=== PATIENT | male | born 1940 | race Caucasian/White ===

== ENCOUNTER 2018-01-23 07:26 | Outpatient (CLI) | payer MEDICARE, OTHER ==
[2018-01-23 08:15] LABS: BASOPHILS # (AUTO) 0.1 10^3/uL (0.0-0.1); BASOPHILS % (AUTO) 1.5 %; EOSINOPHILS # (AUTO) 0.1 10^3/uL (0.0-0.7); EOSINOPHILS % (AUTO) 1.8 %; HGB - HEMOGLOBIN 14.6 g/dL (14.0-18.0); LYMPHOCYTES # (AUTO) 1.4 10^3/uL (1.5-3.5); LYMPHOCYTES % (AUTO) 24.1 %; MEAN CORPUSCULAR HEMOGLOBIN 32.4 pg (27.0-31.0); MEAN CORPUSCULAR HGB CONC 33.5 g/dL (32.0-36.0); MEAN CORPUSCULAR VOLUME 96.6 fL (80.0-94.0); MEAN PLATELET VOLUME 9.2 fL (7.4-11.4); MONOCYTES # (AUTO) 0.6 10^3/uL (0.0-1.0); MONOCYTES % (AUTO) 9.8 %; NEUTROPHILS # (AUTO) 3.7 10^3/uL (1.5-6.6); NEUTROPHILS % (AUTO) 62.8 %; PLT - PLATELET COUNT 127 10^3/uL (130-450); RED BLOOD COUNT 4.51 10^6/uL (4.70-6.10); RED CELL DISTRIBUTION WIDTH 14.3 % (12.0-15.0)
[2018-01-23 08:26] LABS: ALBUMIN 4.3 g/dL (3.2-5.5); ALBUMIN/GLOBULIN RATIO 1.4 (1.0-2.2); ALKALINE PHOSPHATASE 46 IU/L (42-121); ALT ALANINE AMINOTRANSFERASE 24 IU/L (10-60); AST ASPARTATE AMINOTRANSFERASE 30 IU/L (10-42); BILIRUBIN,TOTAL 1.6 mg/dL (0.2-1.0); BUN - BLOOD UREA NITROGEN 27 mg/dL (6-20); CALCIUM 9.8 mg/dL (8.5-10.3); CARBON DIOXIDE - CO2 33 mmol/L (21-32); CHLORIDE 100 mmol/L (101-111); CHOL/HDL RATIO 2.7 (<5.0); CHOLESTEROL 133 mg/dL; DIGOXIN 1.2 ng/mL; GFR - MDRD 72 (>89); GLUCOSE 116 mg/dL (70-100); HB2 TOTAL 15.8 g/dL; HDL CHOLESTEROL 49 mg/dL; HEMOGLOBIN A1C 0.77 g/dL; HEMOGLOBIN A1C % 6.6 % (4.6-6.2); LDL CHOLESTEROL,CALCULATED 74 mg/dL; LDL/HDL RATIO 1.5 (<3.6); SODIUM 141 mmol/L (135-145); TOTAL PROTEIN 7.3 g/dL (6.7-8.2); VLDL CHOLESTEROL 10 mg/dL
[2018-01-23 08:36] LABS: RBC MORPHOLOGY (MULTIPLE) 2+ ANISOCYTOSIS (NORMAL)
== END 2018-01-23 07:27 | disposition home or self-care (01) ==
LOC: LAB 07:26
PROVIDERS: ATTEND Internal Medicine Cardiovascular Disease
DX: I10 Essential (primary) hypertension (principal); I25.10 Atherosclerotic heart disease of native coronary artery without angina pectoris; E11.9 Type 2 diabetes mellitus without complications; E78.5 Hyperlipidemia, unspecified; I48.91 Unspecified atrial fibrillation
CPT/HCPCS: 36415; 80053; 80061; 80162; 83036; 83721; 85025

== ENCOUNTER 2018-07-13 23:59 | Emergency (ER) | payer MEDICARE, OTHER ==
--- NOTE | 2018-07-14 01:18 | ED Physician Documentation ---
PD HPI BACK PAIN - Stated complaint Stated Complaint: BACK PAIN - Chief complaint Chief Complaint: Back Pain - History obtained from History obtained from: Patient - History of Present Illness Timing - onset: How many weeks ago (3) Timing - details: Gradual onset, Intermittant, Waxing and waning Pain level max: 8 Pain level now: 0 Location: Mid, Lower, Right, Left Quality: Pain, Spasm Associated symptoms: No: Fever, Weakness, Numbness, Incontinent of urine, Unable to urinate, Hematuria, Incontinent of stool Improves with: Rest Worsened by: Movement Similar symptoms before: Has not had sx before Recently seen: Not recently seen Review of Systems Constitutional: reports: Reviewed and negative Cardiac: reports: Reviewed and negative Respiratory: reports: Reviewed and negative GI: reports: Reviewed and negative : denies: Dysuria, Frequency, Unable to Void, Incontinent Skin: denies: Rash Musculoskeletal: reports: Back pain. denies: Neck pain Neurologic: denies: Focal weakness, Numbness PD PAST MEDICAL HISTORY - Past Medical History Past Medical History: Yes Cardiovascular: Coronary artery disease, Valve disorder Respiratory: None Neuro: Dementia Endocrine/Autoimmune: Type 2 diabetes GI: None : None HEENT: None Psych: None Musculoskeletal: Chronic back pain, Other Derm: None - Past Surgical History Past Surgical History: Yes Ortho: Other Cardiovascular: CABG, Other - Present Medications Home Medications: Ambulatory Orders Medication Instructions Recorded Confirmed Carvedilol 6.25 mg PO BID 07/14/18 07/14/18 Clopidogrel [Plavix] 75 mg PO DAILY 07/14/18 07/14/18 Cyclobenzaprine [Flexeril] 10 mg PO TID PRN #20 tablet 07/14/18 Hydrocodone/Acetaminophen 1 - 2 each PO Q6H PRN #14 tablet 07/14/18 [Hydrocodon-Acetaminophen 5-325] Lisinopril/Hydrochlorothiazide 1 mg PO DAILY 07/14/18 07/14/18 [Lisinopril-Hctz 20-25 mg Tab] Rosuvastatin Calcium 10 mg PO DAILY 07/14/18 07/14/18 - Allergies Allergies/Adverse Reactions: Allergies Allergy/AdvReac Type Severity Reaction Status Date / Time amoxicillin AdvReac Hives Verified 07/14/18 00:24 niacin AdvReac Hives Verified 07/14/18 00:24 - Social History Does the pt smoke?: No Smoking Status: Never smoker Does the pt drink ETOH?: Yes Does the pt have substance abuse?: No - Immunizations Immunizations are current?: Yes - POLST Patient has POLST: No PD ED PE NORMAL - Vitals Vital signs reviewed: Yes - General General: Alert and oriented X 3, No acute distress, Well developed/nourished - Cardiac Cardiac: RRR, No murmur - Respiratory Respiratory: No respiratory distress, Clear bilaterally - Abdomen Abdomen: Normal bowel sounds, Soft, Non tender, Non distended - Back Back: No CVA TTP, No spinal TTP - Derm Derm: Normal color, Warm and dry, No rash - Extremities Extremities: No edema - Neuro Neuro: Alert and oriented X 3, No motor deficit (5/5 bilateral plantarflexion and knee extension), No sensory deficit, Other (2+/4 bilateral patellar DTR) Results - Vitals Vitals: Vital Signs - 24 hr 07/14/18 07/14/18 07/14/18 00:12 01:44 02:57 Temperature 36.3 C L 36.3 C L Heart Rate 72 63 Respiratory 18 16 16 Rate Blood Pressure 145/86 H 137/82 H O2 Saturation 99 98 Oxygen O2 Source Room air - Labs Labs: Laboratory Tests 07/14/18 01:40 Urine Color YELLOW Urine Clarity CLEAR Urine pH 7.0 Ur Specific [place] 1.015 Urine Protein NEGATIVE Urine Glucose (UA) NEGATIVE Urine Ketones 15 H Urine Occult Blood NEGATIVE Urine Nitrite NEGATIVE Urine Bilirubin NEGATIVE Urine Urobilinogen 0.2 (NORMAL) Ur Leukocyte Esterase NEGATIVE Ur Microscopic Review NOT INDICATED Urine Culture Comments NOT INDICATED - Rads (name of study) lumbar xrays Radiology: Prelim report reviewed, See rad report PD MEDICAL DECISION MAKING - ED course Complexity details: reviewed results, re-evaluated patient, considered differential, d/w patient, d/w family Departure - Departure Disposition: 01 Home, Self Care Clinical Impression: Back pain Condition: Good Instructions: NARCOTIC, Oral, ED Neck Back Pain General Follow-Up: [facility] [Provider Group] [facility] [Provider Group] Prescriptions: Cyclobenzaprine [Flexeril] 10 mg PO TID PRN #20 tablet PRN Reason: Spasms Hydrocodone/Acetaminophen [Hydrocodon-Acetaminophen 5-325] 1 - 2 each PO Q6H PRN #14 tablet PRN Reason: pain Discharge Date/Time: 07/14/18 03:22
[2018-07-14] MEDS ORDERED: HYDROcod/ACETAM 5/325 MG TABLET PO STA (01:39)
[2018-07-14] MEDS ORDERED: CYCLOBENZAPRINE 10 MG TABLET PO STA (01:40)
[2018-07-14 01:59] LABS: BILIRUBIN,URINE NEGATIVE (NEGATIVE); GLUCOSE, URINE (UA) NEGATIVE (NEGATIVE); KETONES,URINE (UA) 15 mg/dL (NEGATIVE); LEUKOCYTE ESTERASE, URINE NEGATIVE (NEGATIVE); NITRITE,URINE NEGATIVE (NEGATIVE); OCCULT BLOOD,URINE NEGATIVE (NEGATIVE); PROTEIN,URINE NEGATIVE (NEGATIVE); UROBILINOGEN,URINE 0.2 (NORMAL) E.U./dL (NORMAL)
[2018-07-14 02:09] LABS: CLARITY,URINE CLEAR (CLEAR)
--- NOTE | 2018-07-14 02:37 | XRAY Report ---
Reason: low back pain Procedure Date: 07/14/2018 Accession Number: [id number] / [id number] Procedure: XR - Lumbar Spine Complete CPT Code: FULL RESULT: EXAM: LUMBOSACRAL SPINE RADIOGRAPHY EXAM DATE: 07/14/2018 02:19 AM. CLINICAL HISTORY: Low back pain. COMPARISONS: None. TECHNIQUE: 3 views. FINDINGS: Alignment: Degenerative dextroscoliosis. Bones: Five [id number] lumbar vertebral bodies are present. No fractures or bone lesions. Disks: Moderate to severe degenerative disk disease. Facets: Moderate facet arthropathy. Sacroiliac Joints: Unremarkable. Soft Tissues: Atherosclerotic calcifications. No evidence of bowel obstruction. IMPRESSION: Moderate to severe degenerative changes, with degenerative dextroscoliosis of the lumbar spine. No evidence of acute fracture. RADIA
[2018-07-14 02:58] VITALS: BP 137/82
== END 2018-07-14 03:22 | disposition home or self-care (01) ==
LOC: ED 23:59
DX: M54.5 Low back pain (principal); I25.10 Atherosclerotic heart disease of native coronary artery without angina pectoris; E11.9 Type 2 diabetes mellitus without complications; F03.90 Unspecified dementia, unspecified severity, without behavioral disturbance, psychotic disturbance, mood disturbance, and anxiety; Z95.1 Presence of aortocoronary bypass graft; Z79.01 Long term (current) use of anticoagulants
CPT/HCPCS: 72110; 81003; 99283; A9270; 81001; 87086

== ENCOUNTER 2021-11-22 09:12 | Emergency (ER) | payer MEDICARE ==
--- NOTE | 2021-11-22 09:55 | XRAY Report ---
PROCEDURE: Chest 1 View X-Ray INDICATIONS: chest pain COMMENTS: CHEST PAIN/ PT STATES CHRONIC COUGH PRIORS: NONE TECHNIQUE: One view of the chest was acquired. COMPARISON: None FINDINGS: Surgical changes and devices: Status post median sternotomy Lungs and pleura: No pleural effusions or pneumothorax. Lungs are clear. Mediastinum: Mediastinal contours appear normal. Heart appears enlarged. Bones and chest wall: No suspicious bony lesions. Overlying soft tissues appear unremarkable. IMPRESSION: 1. No acute abnormality of the chest. 2. Cardiomegaly. Reviewed by: Steven Escobedo on 11/22/2021 9:54 AM PDT Approved by: Steven Escobedo on 11/22/2021 9:54 AM PDT Station ID: [id number]
--- NOTE | 2021-11-22 10:22 | ED Physician Documentation ---
History of Present Illness - Stated complaint Stated Complaint: COUGH/WEAKNESS - Chief complaint Chief Complaint: General - History obtained from History obtained from: Patient, Family - Additonal information Additional information: Pt is brought to the ED for CC of cough and congestion. states she had a cold last week, and pt seems to have developed the same sx. No fever. No swelling or dyspnea. Normal appetite. Pt has a h/o dementia. states she was not too concerned, but pt wished to come to the doctor, so she has brought him. No other complaints at this time. Review of Systems Ten Systems: 10 systems reviewed and negative Constitutional: reports: Reviewed and negative Eyes: reports: Reviewed and negative Ears: reports: Reviewed and negative Nose: reports: Rhinorrhea / runny nose, Congestion Throat: reports: Reviewed and negative Cardiac: reports: Reviewed and negative Respiratory: reports: Cough GI: reports: Reviewed and negative : reports: Reviewed and negative Skin: reports: Reviewed and negative Musculoskeletal: reports: Reviewed and negative Neurologic: reports: Reviewed and negative Psychiatric: reports: Reviewed and negative Endocrine: reports: Reviewed and negative Immunocompromised: reports: Reviewed and negative PD PAST MEDICAL HISTORY - Past Medical History Past Medical History: Yes Cardiovascular: Coronary artery disease, Atrial fibrillation, Valve disorder Respiratory: None Neuro: Dementia, CVA Endocrine/Autoimmune: Type 2 diabetes GI: None : Incontinence, Frequency HEENT: None Psych: None Musculoskeletal: Osteoarthritis, Chronic back pain, Other Derm: None - Past Surgical History Past Surgical History: Yes General: Colonoscopy Ortho: Other Cardiovascular: CABG, Valve replacement, Other - Present Medications Home Medications: Ambulatory Orders Medication Instructions Recorded Confirmed Lisinopril/Hydrochlorothiazide 1 mg PO DAILY 07/14/18 11/22/21 [Lisinopril-Hctz 20-25 mg Tab] Rosuvastatin Calcium 10 mg PO DAILY 07/14/18 11/22/21 carvediloL [Coreg] 3.125 mg PO BID 11/22/21 11/22/21 - Allergies Allergies/Adverse Reactions: Allergies Allergy/AdvReac Type Severity Reaction Status Date / Time amoxicillin AdvReac Hives Verified 11/22/21 09:20 niacin AdvReac Hives Verified 11/22/21 09:20 - Social History Does the pt smoke?: No Smoking Status: Never smoker Does the pt drink ETOH?: No Does the pt have substance abuse?: No - Immunizations Immunizations are current?: Yes - POLST Patient has POLST: No PD ED PE NORMAL - Vitals Vital signs reviewed: Yes - General General: No acute distress, Well developed/nourished, Other (Alert, conversant, NAD) - HEENT HEENT: Atraumatic, PERRL, EOMI, Moist mucous membranes - Neck Neck: Supple, no meningeal sign - Cardiac Cardiac: RRR, No murmur, Strong equal pulses - Respiratory Respiratory: No respiratory distress, Clear bilaterally - Abdomen Abdomen: Normal bowel sounds, Soft, Non tender, Non distended - Derm Derm: Normal color, Warm and dry, No rash - Extremities Extremities: No deformity, No edema - Neuro Neuro: Other (Grossly intact) - Psych Psych: Normal mood, Normal affect Results - Vitals Vitals: Oxygen O2 Source Room air - Labs Labs: Laboratory Tests 11/22/21 09:45 Nasal Adenovirus (PCR) NOT DETECTED Nasal B. parapertussis DNA (PCR) NOT DETECTED Nasal Coronavir 229E PCR NOT DETECTED Nasal Coronavir HKU1 PCR NOT DETECTED Nasal Coronavir NL63 PCR NOT DETECTED Nasal Coronavir OC43 PCR NOT DETECTED Nasal Enterovir/Rhinovir PCR NOT DETECTED Nasal Influenza B PCR NOT DETECTED Nasal Influenza A PCR NOT DETECTED Nasal Parainfluen 1 PCR NOT DETECTED Nasal Parainfluen 2 PCR NOT DETECTED Nasal Parainfluen 3 PCR NOT DETECTED Nasal Parainfluen 4 PCR NOT DETECTED Nasal RSV (PCR) NOT DETECTED Nasal B.pertussis DNA PCR NOT DETECTED Nasal C.pneumoniae (PCR) NOT DETECTED Dank Human Metapneumo PCR NOT DETECTED Nasal M.pneumoniae (PCR) NOT DETECTED Nasal SARS-CoV-2 (PCR) NOT DETECTED - Rads (name of study) CXR Radiology: Final report received, EMP read indepedently, See rad report (nad) PD MEDICAL DECISION MAKING - ED course Complexity details: reviewed results, re-evaluated patient, considered differential, d/w patient, d/w family ED course: Pt was worked up with CXR and respiratory panel. CXR was negative. Respiratory PCR panel is pending. We have discussed that we will contact pt/family with any positive findings. Pt is very well-appearing, and is ready for d/c home. Departure - Departure Disposition: Home, Self Care Clinical Impression: Viral upper respiratory infection Condition: Stable Instructions: ED Viral Syndrome Comments: A respiratory panel has been obtained and is pending at this time. He we will call you with any positive results. The chest x-ray looks good and shows no evidence of pneumonia or any other lung condition. Most likely, your symptoms are caused by one of the many viruses that can affect the upper respiratory system,. These are in general self-limited and symptoms will be expected to go away on their own in the next several days to week. Discharge Date/Time: 11/22/21 10:26
[2021-11-22 10:23] VITALS: BP 155/79
[2021-11-22 10:48] LABS: B. PARAPERTUSSIS- RESP PCR PAN NOT DETECTED; B. PERTUSSIS- RESP PCR PANEL NOT DETECTED; C. PNEUMONIAE- RESP PCR PANEL NOT DETECTED; CORONAVIRUS 229E-RESP PCR NOT DETECTED; CORONAVIRUS HKU1-RESP PCR NOT DETECTED; CORONAVIRUS NL63-RESP PCR NOT DETECTED; CORONAVIRUS OC43-RESP PCR NOT DETECTED; HUMAN METAPNEUMOVIRUS NOT DETECTED; INFLUENZA A- RESP PCR PANEL NOT DETECTED; INFLUENZA B - RESP PCR PANEL NOT DETECTED; M. PNEUMONIAE- RESP PCR PANEL NOT DETECTED; PARAINFLUENZA VIRUS 1 NOT DETECTED; PARAINFLUENZA VIRUS 2 NOT DETECTED; PARAINFLUENZA VIRUS 3 NOT DETECTED; PARAINFLUENZA VIRUS 4 NOT DETECTED; RHINOVIRUS/ENTEROVIRUS NOT DETECTED; RSV- RESP PCR PANEL NOT DETECTED; SARS-CoV-2 -RESP PCR PANEL NOT DETECTED
== END 2021-11-22 10:26 | disposition home or self-care (01) ==
LOC: ED 09:12
DX: J06.9 Acute upper respiratory infection, unspecified (principal); F03.90 Unspecified dementia, unspecified severity, without behavioral disturbance, psychotic disturbance, mood disturbance, and anxiety; E11.9 Type 2 diabetes mellitus without complications
CPT/HCPCS: 87633; 99282; 99284

== ENCOUNTER 2022-02-26 08:00 | Outpatient (CLI) | payer MEDICARE | END 2022-02-26 23:59 | disposition home or self-care (01) | LOC: LAB 08:00 | PROVIDERS: ATTEND Physician Assistant Medical | DX: L08.9 Local infection of the skin and subcutaneous tissue, unspecified (principal); R21 Rash and other nonspecific skin eruption | CPT/HCPCS: 81599; 87070; 87077; 87205; 87529; 87798 ==

== ENCOUNTER 2022-03-06 07:34 | Emergency (ER) | payer MEDICARE ==
--- NOTE | 2022-03-06 07:49 | ED Physician Documentation ---
PD HPI ABD PAIN - Stated complaint Stated Complaint: CONSTIPATION - History obtained from History obtained from: Patient - History of Present Illness Timing - onset: How many days ago (10) Timing - duration: Days (He started about 10 days ago with some difficulty urinating and also noted a rash around the perirectal and left gluteal area. Seen at walk-in 8 days ago and diagnosed with some urinary retention and madeline arent skin rash with secondary infection. Treated with Jocelyne acyclovir as well as doxycycline.) Timing - details: Still present (His states the rash has improved quite a b it with still some mild redness. Still difficulty urinating with only dribbles and a feeling of a full bladder. Now 3 days of rectal pressure and urge of bowel movement without any stool.) Quality: Cramping, Aching (lower abd, susan suprapubic area, with fullness/ distension ( says he looks like he is ).), Fullness/distended (suprapubic) Location: Suprapubic Radiation: No: Chest, Lower back Associated symptoms: Constipation, Dysuria (hesitancy and dribbling only for the past week, despite tamsulosin.). No: Fever, Nausea, Vomiting Recently seen: Clinic (8 days ago and Rx Tamsulosin (for retention), Doxycycline and valacyclovir (for skin rash).) Review of Systems Unable to obtain: Dementia, Other (info from as well) Constitutional: denies: Fever, Chills Nose: denies: Rhinorrhea / runny nose, Congestion Throat: denies: Sore throat Respiratory: denies: Cough GI: reports: Abdominal Pain, Constipation. denies: Nausea, Vomiting, Diarrhea : reports: Frequency, Hesitancy Skin: reports: Rash (left gluteal and perirectal.) PD PAST MEDICAL HISTORY - Past Medical History Cardiovascular: Coronary artery disease, Atrial fibrillation, Valve disorder Respiratory: None Neuro: Dementia, CVA Endocrine/Autoimmune: Type 2 diabetes GI: None : Incontinence, Frequency HEENT: None Psych: None Musculoskeletal: Osteoarthritis, Chronic back pain, Other Derm: None - Past Surgical History Past Surgical History: Yes General: Colonoscopy Ortho: Other Cardiovascular: CABG, Valve replacement, Other - Present Medications Home Medications: Ambulatory Orders Medication Instructions Recorded Confirmed Lisinopril/Hydrochlorothiazide 1 mg PO DAILY 07/14/18 03/06/22 [Lisinopril-Hctz 20-25 mg Tab] Rosuvastatin Calcium 10 mg PO HS 07/14/18 03/06/22 carvediloL [Coreg] 3.125 mg PO BID 11/22/21 03/06/22 Clotrimazole/Betamethasone Crm 1 applic TOP BID 6 Days #30 ml 03/06/22 [Lotrisone Cream] Docusate Sodium 100Mg Capsule 100 mg PO DAILY #20 cap 03/06/22 [Colace 100Mg Capsule] Doxycycline Hyclate 100 mg PO BID 03/06/22 03/06/22 Tamsulosin [Flomax] 0.4 mg PO DAILY 03/06/22 03/06/22 Valacyclovir HCl [Valtrex] 1,000 mg PO TID 03/06/22 03/06/22 - Allergies Allergies/Adverse Reactions: Allergies Allergy/AdvReac Type Severity Reaction Status Date / Time clindamycin Allergy Unknown Verified 03/06/22 07:50 amoxicillin AdvReac Hives Verified 11/22/21 09:20 niacin AdvReac Hives Verified 11/22/21 09:20 - Social History Does the pt smoke?: No Smoking Status: Never smoker Does the pt drink ETOH?: No Does the pt have substance abuse?: No - Immunizations Immunizations are current?: Yes - POLST Patient has POLST: No PD ED PE NORMAL - Vitals Vital signs reviewed: Yes - General General: Alert and oriented X 3, No acute distress, Well developed/nourished - Abdomen Abdomen: Normal bowel sounds, Soft, Other (Notable fullness and mild to moderate tenderness in the suprapubic area and a rounded shape consistent with an enlarged bladder. 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 Testicles and scrotum without any fullness or tenderness. No hernias noted.) - Rectal Rectal: Other (digital exam shows tennisball sized impaction of medium hard stool that I broke up digitally. No tenderness. Normal rectal tone. ) - Back Back: No CVA TTP - Derm Derm: Normal color, Warm and dry, Other (The perirectal area shows demarcated redness with some speckled redness at the edges. It is perirectal up through the coccygeal area and left gluteal. Likely tinea cruris with secondary infection that has cleared. Previous shingles consideration is not unreasonabl e.) - Neuro Neuro: Alert and oriented X 3, No motor deficit, Normal speech Results - Vitals Vitals: Vital Signs - 24 hr 03/06/22 03/06/22 03/06/22 07:47 08:58 11:10 Temperature 36.4 C L Heart Rate 86 82 94 Respiratory 14 16 18 Rate Blood Pressure 182/82 H 169/77 H O2 Saturation 99 99 100 Oxygen O2 Source Room air PD MEDICAL DECISION MAKING - ED course Complexity details: reviewed old records, re-evaluated patient (1200 ml out from bladder with albright. Abd much decompressed. He did have BM after 2 enemas and feels better in that regard too. ), considered differential (He has developed some constipation with mild impaction. Digital exam and then enema should help with this as well as some stool softeners. However her main issue is acute urinary retention with enlarged bladder and I think that is most of his cramps and pain. Tinea cruris in the perirectal area.), d/w patient Departure - Departure Disposition: Home, Self Care Clinical Impression: Urinary retention, Rash Constipation Qualifiers: Constipation type: unspecified constipation type Qualified Code(s): K59.00 - Constipation, unspecified Condition: Stable Record reviewed to determine appropriate education?: Yes Instructions: ED Catheter Care Albright Prescriptions: Docusate Sodium 100Mg Capsule [Colace 100Mg Capsule] 100 mg PO DAILY #20 cap Clotrimazole/Betamethasone Crm [Lotrisone Cream] 1 applic TOP BID 6 Days #30 ml Comments: You did have a large amount of urine held in the bladder. We will need to continue the Albright catheter for likely a week or more to allow the bladder distention to decrease. The muscles being stretched for that long will have decreased the tone and function of the bladder muscles. These need to constrict back down and get into better tone. Meanwhile would also have you continue with the tamsulosin to help with prostate. Follow-up with your primary care. They may or may not want to refer you to a urologist as well. The enema we gave for the constipation should help start to move things along. However would continue with stool softeners orally. Docusate twice daily for the next several days and then once daily after that. The rash around your buttock and perirectal area does look like it had some bacterial component to it. The antibiotics look like they have helped. However there still appears to be likely an underlying yeast component. You can use the Lotrisone antifungal and anti-inflammatory cream twice daily to the rash area to better resolve that. I transmitted your prescriptions to your preferred pharmacy. Discharge Date/Time: 03/06/22 12:42
[2022-03-06] MEDS ORDERED: LIDOCAINE 2% URO-JET 5 ML SYRINGE UR STA (08:16)
[2022-03-06] MEDS ORDERED: MINERAL OIL ENEMA 133 ML BOTTLE RC STA (08:16)
[2022-03-06] MEDS ORDERED: DOCUSATE SODIUM 100 MG CAPSULE PO STA (08:17)
[2022-03-06 08:59] VITALS: BP 169/77
[2022-03-06] MEDS ORDERED: SALINE ENEMA 133 ML BOTTLE RC STA (10:59)
[2022-03-06] MEDS ORDERED: LACTULOSE 10 GM /15 ML UDC PO STA (10:59)
== END 2022-03-06 12:42 | disposition home or self-care (01) ==
LOC: ED 07:34
DX: R33.9 Retention of urine, unspecified (principal); B35.6 Tinea cruris; K59.00 Constipation, unspecified
CPT/HCPCS: 51702; 99283; A9270

== ENCOUNTER 2022-03-15 10:18 | Emergency (ER) | payer MEDICARE ==
--- NOTE | 2022-03-15 10:58 | ED Physician Documentation ---
History of Present Illness - Stated complaint Stated Complaint: MALE - Chief complaint Chief Complaint: General - History obtained from History obtained from: Patient, Family - Additonal information Additional information: 81-year-old gentleman with dementia presents by who gives most of the history because of his dementia. He was seen here 9 days ago for constipation and urinary retention, العلي was placed and he was disimpacted. They have access issues with regard to primary care and urology and the العلي is hurting. A lot of pain last night at the tip of the penis. Review of Systems Constitutional: reports: Reviewed and negative Ears: reports: Reviewed and negative GI: denies: Abdominal Pain, Nausea, Vomiting : denies: Dysuria, Frequency, Hesitancy PD PAST MEDICAL HISTORY - Past Medical History Cardiovascular: Coronary artery disease, Atrial fibrillation, Valve disorder Respiratory: None Neuro: Dementia, CVA Endocrine/Autoimmune: Type 2 diabetes GI: None : Incontinence, Frequency HEENT: None Psych: None Musculoskeletal: Osteoarthritis, Chronic back pain, Other Derm: None - Past Surgical History Past Surgical History: Yes General: Colonoscopy Ortho: Other Cardiovascular: CABG, Valve replacement, Other - Present Medications Home Medications: Ambulatory Orders Medication Instructions Recorded Confirmed Lisinopril/Hydrochlorothiazide 1 mg PO DAILY 07/14/18 03/06/22 [Lisinopril-Hctz 20-25 mg Tab] Rosuvastatin Calcium 10 mg PO HS 07/14/18 03/06/22 carvediloL [Coreg] 3.125 mg PO BID 11/22/21 03/06/22 Clotrimazole/Betamethasone Crm 1 applic TOP BID 6 Days #30 ml 03/06/22 [Lotrisone Cream] Docusate Sodium 100Mg Capsule 100 mg PO DAILY #20 cap 03/06/22 [Colace 100Mg Capsule] Doxycycline Hyclate 100 mg PO BID 03/06/22 03/06/22 Tamsulosin [Flomax] 0.4 mg PO DAILY 03/06/22 03/06/22 Valacyclovir HCl [Valtrex] 1,000 mg PO TID 03/06/22 03/06/22 Lidocaine Viscous 2% [Xylocaine 5 ml UR Q4H #100 ml 03/15/22 Viscous 2%] - Allergies Allergies/Adverse Reactions: Allergies Allergy/AdvReac Type Severity Reaction Status Date / Time clindamycin Allergy Unknown Verified 03/06/22 07:50 amoxicillin AdvReac Hives Verified 11/22/21 09:20 niacin AdvReac Hives Verified 11/22/21 09:20 - Social History Does the pt smoke?: No Smoking Status: Never smoker Does the pt drink ETOH?: No Does the pt have substance abuse?: No - Immunizations Immunizations are current?: Yes - POLST Patient has POLST: No PD ED PE NORMAL - Vitals Vital signs reviewed: Yes - General General: No acute distress - Abdomen Abdomen: Normal bowel sounds, Soft, Non tender - Male Male : Other (العلي in place with bloody but not opaque or clotted urine.) - Derm Derm: Normal color, Warm and dry Results - Vitals Vitals: Vital Signs - 24 hr 03/15/22 10:29 Temperature 37.0 C Heart Rate 72 Respiratory 19 Rate Blood Pressure 150/83 H O2 Saturation 99 Oxygen O2 Source Room air PD MEDICAL DECISION MAKING - ED course ED course: 81-year-old gentleman presents with catheter pain, his العلي was removed on initial evaluation we will do a voiding trial. 81-year-old gentleman with العلي related pain. His العلي was removed, but he failed the voiding trial so it was replaced. Departure - Departure Disposition: 01 Home, Self Care Clinical Impression: Urinary retention Condition: Good Record reviewed to determine appropriate education?: Yes Instructions: ED Catheter Care العلي Prescriptions: Lidocaine Viscous 2% [Xylocaine Viscous 2%] 5 ml UR Q4H #100 ml Comments: Continue efforts at outpatient followup for both primary care and urology.
[2022-03-15] MEDS ORDERED: LIDOCAINE 2% URO-JET 5 ML SYRINGE UR STA (14:21)
[2022-03-15 14:47] VITALS: BP 170/65
== END 2022-03-15 15:01 | disposition home or self-care (01) ==
LOC: ED 10:18
DX: R33.9 Retention of urine, unspecified (principal)
CPT/HCPCS: 51702; 99282; 99283

== ENCOUNTER 2022-05-08 11:31 | Emergency (ER) | payer MEDICARE ==
--- NOTE | 2022-05-08 14:14 | ED Physician Documentation ---
PD HPI MALE - Stated complaint Stated Complaint: CATH BLOCKED - Chief complaint Chief Complaint: Abd Pain - History obtained from History obtained from: Patient, Family - Additional information Additional information: Patient is an 81-year-old male with a العلي catheter that has not been draining since this morning. Per his he had had a stumble and fall yesterday and since this morning he has had no drainage in his catheter. He was so uncomfortable prior to triage that deflated the balloon and remove the catheter as she was shown how to do so by his urologist in [place]. His next appointment with his urologist is in a week and he was to have his catheter removed. Patient does feel like he is able to void.He does report having suprapubic discomfort. He denies fever, chest pain, difficulty breathing. He has not had cloudiness to the urine recently. Review of Systems Constitutional: denies: Fever Nose: denies: Congestion Throat: denies: Sore throat Cardiac: denies: Chest pain / pressure Respiratory: denies: Dyspnea GI: reports: Abdominal Pain (Suprapubic) : reports: Unable to Void Musculoskeletal: denies: Back pain PD PAST MEDICAL HISTORY - Past Medical History Cardiovascular: Coronary artery disease, Atrial fibrillation, Valve disorder Respiratory: None Neuro: Dementia, CVA Endocrine/Autoimmune: Type 2 diabetes GI: None : Incontinence, Frequency HEENT: None Psych: None Musculoskeletal: Osteoarthritis, Chronic back pain, Other Derm: None - Past Surgical History Past Surgical History: Yes General: Colonoscopy Ortho: Other Cardiovascular: CABG, Valve replacement, Other - Present Medications Home Medications: Ambulatory Orders Medication Instructions Recorded Confirmed Lisinopril/Hydrochlorothiazide 1 mg PO DAILY 07/14/18 03/06/22 [Lisinopril-Hctz 20-25 mg Tab] Rosuvastatin Calcium 10 mg PO HS 07/14/18 03/06/22 carvediloL [Coreg] 3.125 mg PO BID 11/22/21 03/06/22 Clotrimazole/Betamethasone Crm 1 applic TOP BID 6 Days #30 ml 03/06/22 [Lotrisone Cream] Docusate Sodium 100Mg Capsule 100 mg PO DAILY #20 cap 03/06/22 [Colace 100Mg Capsule] Doxycycline Hyclate 100 mg PO BID 03/06/22 03/06/22 Tamsulosin [Flomax] 0.4 mg PO DAILY 03/06/22 03/06/22 Valacyclovir HCl [Valtrex] 1,000 mg PO TID 03/06/22 03/06/22 Lidocaine Viscous 2% [Xylocaine 5 ml UR Q4H #100 ml 03/15/22 Viscous 2%] - Allergies Allergies/Adverse Reactions: Allergies Allergy/AdvReac Type Severity Reaction Status Date / Time clindamycin Allergy Unknown Verified 03/06/22 07:50 amoxicillin AdvReac Hives Verified 11/22/21 09:20 niacin AdvReac Hives Verified 11/22/21 09:20 - Social History Does the pt smoke?: No Smoking Status: Never smoker Does the pt drink ETOH?: No Does the pt have substance abuse?: No - Immunizations Immunizations are current?: Yes - POLST Patient has POLST: No PD ED PE NORMAL - General General: Alert and oriented X 3, No acute distress, Well developed/nourished - HEENT HEENT: Atraumatic - Neck Neck: Supple, no meningeal sign - Cardiac Cardiac: RRR, Strong equal pulses - Respiratory Respiratory: No respiratory distress, Clear bilaterally - Abdomen Abdomen: Soft. No: Non tender (Mild suprapubic tenderness to palpation) - Derm Derm: Warm and dry Results - Vitals Vitals: Vital Signs - 24 hr 05/08/22 05/08/22 05/08/22 12:04 13:55 14:16 Temperature 37.1 C Heart Rate 90 75 69 Respiratory 19 18 17 Rate Blood Pressure 144/90 H 125/68 133/68 H O2 Saturation 99 99 98 Oxygen O2 Source Room air PD MEDICAL DECISION MAKING - ED course ED course: Patient with العلي catheter problem that was removed by his . He has suprapubic tenderness. He was not able to void much on his own and has considerable amount still in his bladder on bladder scan.New catheter was placed with clear yellow Urine. He is feeling much better. He has no indications to suggest a urinary tract infection. Patient counseled on need for close follow- up with his urologist as well as concerning symptoms to return for. Departure - Departure Disposition: 01 Home, Self Care Clinical Impression: Urinary retention Condition: Stable Instructions: ED Retention Urinary Male Comments: Your العلي catheter was reinserted as again you were having difficulty with urination. Please keep this in until you are seen by your urologist. If the catheter is not draining please return back to the emergency department. Discharge Date/Time: 05/08/22 14:36
[2022-05-08 14:22] VITALS: BP 133/68
== END 2022-05-08 14:36 | disposition home or self-care (01) ==
LOC: ED 11:31
DX: R33.9 Retention of urine, unspecified (principal)
CPT/HCPCS: 51702; 51798; 99282; 99283

== ENCOUNTER 2022-05-29 10:58 | Emergency (ER) | payer MEDICARE ==
[2022-05-29 11:49] VITALS: BP 161/92
--- NOTE | 2022-05-29 12:04 | ED Physician Documentation ---
PD HPI MALE - Stated complaint Stated Complaint: CATH ISSUE - Chief complaint Chief Complaint: Abd Pain - History obtained from History obtained from: Patient, Family - Additional information Additional information: 81-year-old gentleman with dementia presents accompanied by his . He has been catheter dependent for the last couple of months and has an appointment with urology in the next few days for evaluation. His catheter suddenly stopped draining this morning at 8 AM and he has severe suprapubic pain. Review of Systems Unable to obtain: Dementia PD PAST MEDICAL HISTORY - Past Medical History Cardiovascular: Coronary artery disease, Atrial fibrillation, Valve disorder Respiratory: None Neuro: Dementia, CVA Endocrine/Autoimmune: Type 2 diabetes GI: None : Incontinence, Frequency HEENT: None Psych: None Musculoskeletal: Osteoarthritis, Chronic back pain, Other Derm: None - Past Surgical History Past Surgical History: Yes General: Colonoscopy Ortho: Other Cardiovascular: CABG, Valve replacement, Other - Present Medications Home Medications: Ambulatory Orders Medication Instructions Recorded Confirmed Lisinopril/Hydrochlorothiazide 1 mg PO DAILY 07/14/18 03/06/22 [Lisinopril-Hctz 20-25 mg Tab] Rosuvastatin Calcium 10 mg PO HS 07/14/18 03/06/22 carvediloL [Coreg] 3.125 mg PO BID 11/22/21 03/06/22 Clotrimazole/Betamethasone Crm 1 applic TOP BID 6 Days #30 ml 03/06/22 [Lotrisone Cream] Docusate Sodium 100Mg Capsule 100 mg PO DAILY #20 cap 03/06/22 [Colace 100Mg Capsule] Doxycycline Hyclate 100 mg PO BID 03/06/22 03/06/22 Tamsulosin [Flomax] 0.4 mg PO DAILY 03/06/22 03/06/22 Valacyclovir HCl [Valtrex] 1,000 mg PO TID 03/06/22 03/06/22 Lidocaine Viscous 2% [Xylocaine 5 ml UR Q4H #100 ml 03/15/22 Viscous 2%] - Allergies Allergies/Adverse Reactions: Allergies Allergy/AdvReac Type Severity Reaction Status Date / Time clindamycin Allergy Unknown Verified 05/29/22 11:49 amoxicillin AdvReac Hives Verified 05/29/22 11:49 niacin AdvReac Hives Verified 05/29/22 11:49 - Social History Does the pt smoke?: No Smoking Status: Never smoker Does the pt drink ETOH?: No Does the pt have substance abuse?: No - Immunizations Immunizations are current?: Yes - POLST Patient has POLST: No PD ED PE NORMAL - Vitals Vital signs reviewed: Yes - General General: Other (He is alert and oriented to person and place) - Abdomen Abdomen: Normal bowel sounds, Other (Suprapubic tenderness and fullness with a dilated urinary bladder on ultrasound.) - Psych Psych: Normal mood, Normal affect Results - Vitals Vitals: Vital Signs - 24 hr 05/29/22 11:45 Temperature 36.4 C L Heart Rate 92 Respiratory 18 Rate Blood Pressure 161/92 H O2 Saturation 97 Oxygen O2 Source Room air Procedures - General procedure General procedure: العلي catheter was replaced at the bedside by me, after a full iodine prep 16 Japanese العلي was placed without issue. He drained a large amount of urine and felt better. Departure - Departure Disposition: Home, Self Care Clinical Impression: العلي catheter problem Condition: Good Record reviewed to determine appropriate education?: Yes Instructions: ED Catheter Care العلي Comments: Follow-up with urology on Monday as scheduled. Return for new or worsening symptoms.
== END 2022-05-29 12:25 | disposition home or self-care (01) ==
LOC: ED 10:58
DX: T83.091A Other mechanical complication of indwelling urethral catheter, initial encounter (principal)
CPT/HCPCS: 51702; 99281

== ENCOUNTER 2022-06-01 16:11 | Emergency (ER) | payer MEDICARE ==
[2022-06-01 16:25] VITALS: BP 195/101
--- NOTE | 2022-06-01 16:58 | ED Physician Documentation ---
History of Present Illness - Stated complaint Stated Complaint: MALE - Chief complaint Chief Complaint: General - History obtained from History obtained from: Patient, Family - History of Present Illness Timing: Today Pain level max: 5 Pain level now: 4 - Additonal information Additional information: 81-year-old male presents to the emergency department complaining of acute urinary retention. This is been an ongoing issue for the past several months. He had his العلي catheter removed yesterday at the urologist office. Has been unable to urinate today. Requesting a new catheter be placed. Nothing makes it better or worse. Review of Systems Constitutional: denies: Fever, Chills Respiratory: denies: Cough GI: denies: Nausea, Vomiting, Diarrhea PD PAST MEDICAL HISTORY - Past Medical History Cardiovascular: Coronary artery disease, Atrial fibrillation, Valve disorder Respiratory: None Neuro: Dementia, CVA Endocrine/Autoimmune: Type 2 diabetes GI: None : Incontinence, Frequency HEENT: None Psych: None Musculoskeletal: Osteoarthritis, Chronic back pain, Other Derm: None - Past Surgical History Past Surgical History: Yes General: Colonoscopy Ortho: Other Cardiovascular: CABG, Valve replacement, Other - Present Medications Home Medications: Ambulatory Orders Medication Instructions Recorded Confirmed Lisinopril/Hydrochlorothiazide 1 mg PO DAILY 07/14/18 03/06/22 [Lisinopril-Hctz 20-25 mg Tab] Rosuvastatin Calcium 10 mg PO HS 07/14/18 03/06/22 carvediloL [Coreg] 3.125 mg PO BID 11/22/21 03/06/22 Clotrimazole/Betamethasone Crm 1 applic TOP BID 6 Days #30 ml 03/06/22 [Lotrisone Cream] Docusate Sodium 100Mg Capsule 100 mg PO DAILY #20 cap 03/06/22 [Colace 100Mg Capsule] Doxycycline Hyclate 100 mg PO BID 03/06/22 03/06/22 Tamsulosin [Flomax] 0.4 mg PO DAILY 03/06/22 03/06/22 Valacyclovir HCl [Valtrex] 1,000 mg PO TID 03/06/22 03/06/22 Lidocaine Viscous 2% [Xylocaine 5 ml UR Q4H #100 ml 03/15/22 Viscous 2%] - Allergies Allergies/Adverse Reactions: Allergies Allergy/AdvReac Type Severity Reaction Status Date / Time clindamycin Allergy Unknown Verified 06/01/22 16:24 amoxicillin AdvReac Hives Verified 06/01/22 16:24 niacin AdvReac Hives Verified 06/01/22 16:24 - Social History Does the pt smoke?: No Smoking Status: Never smoker Does the pt drink ETOH?: No Does the pt have substance abuse?: No - Immunizations Immunizations are current?: Yes - POLST Patient has POLST: No PD ED PE NORMAL - Vitals Vital signs reviewed: Yes - General General: Alert and oriented X 3, No acute distress - Cardiac Cardiac: RRR - Respiratory Respiratory: No respiratory distress, Clear bilaterally - Abdomen Abdomen: Soft, Other (Distended bladder, tender over the bladder) - Derm Derm: Warm and dry - Neuro Neuro: Alert and oriented X 3 - Psych Psych: Normal mood, Normal affect Results - Vitals Vitals: Vital Signs - 24 hr 06/01/22 16:19 Temperature 37 C Heart Rate 53 L Respiratory 14 Rate Blood Pressure 195/101 H O2 Saturation 98 Oxygen O2 Source Room air PD MEDICAL DECISION MAKING - ED course Complexity details: considered differential, d/w patient, d/w family ED course: العلي catheter was placed and the bladder was drained. Approximately 1 L of urine. Patient feels much better. We will leave the catheter in place and he will follow-up with his urologist. Patient and family counseled regarding signs and symptoms for which I believe and urgent re-evaluation would be necessary. Patient with good understanding of and agreement to plan and is comfortable going home at this time This document was made in part using voice recognition software. While efforts are made to proofread this document, sound alike and grammatical errors may occur. Departure - Departure Disposition: 01 Home, Self Care Clinical Impression: Urinary retention Condition: Good Instructions: ED Catheter Care العلي Follow-Up: BRYANNA PEACOCK ARNP [Primary Care Provider] - Comments: Your العلي catheter was replaced today. Please follow-up with your urologist for further care. Return if you worsen. Discharge Date/Time: 06/01/22 17:40
== END 2022-06-01 17:40 | disposition home or self-care (01) ==
LOC: ED 16:11
DX: R33.9 Retention of urine, unspecified (principal)
CPT/HCPCS: 51702; 99282; 99283

== ENCOUNTER 2022-07-07 09:30 | Outpatient (CLI) | payer MEDICARE ==
[2022-07-07 14:32] LABS: ALBUMIN 4.4 g/dL (3.2-5.5); ALBUMIN/GLOBULIN RATIO 1.4 (1.0-2.2); BILIRUBIN,TOTAL 1.1 mg/dL (0.2-1.0); CALCIUM 9.6 mg/dL (8.5-10.3); CREATININE 0.9 mg/dL (0.6-1.2); POTASSIUM 4.1 mmol/L (3.5-5.0); TOTAL PROTEIN 7.5 g/dL (6.7-8.2)
[2022-07-07 20:06] LABS: ESTIMATED AVERAGE GLUCOSE 140 mg/dL (70-100); HEMOGLOBIN A1c% 6.5 % (4.27-6.07)
== END 2022-07-07 09:31 | disposition home or self-care (01) ==
LOC: LAB.S 09:30
PROVIDERS: ATTEND Nurse Practitioner Family
DX: E11.9 Type 2 diabetes mellitus without complications (principal); R35.0 Frequency of micturition
CPT/HCPCS: 36415; 80053; 83036; 87077; 87086; 87181

== ENCOUNTER 2022-10-30 15:10 | Emergency (ER) | payer MEDICARE ==
[2022-10-30 15:22] VITALS: BP 184/83
--- NOTE | 2022-10-30 15:37 | ED Physician Documentation ---
PD HPI MALE - Stated complaint Stated Complaint: MALE GI - Chief complaint Chief Complaint: Abd Pain - History obtained from History obtained from: Patient, Family - Additional information Additional information: They had to take a car trip 3 days ago. He has not had a bowel movement since. He is having a lot of rectal pain. His tried a fleets mineral oil enema today without relief. Most of the history is from the as the patient has dementia. PD PAST MEDICAL HISTORY - Past Medical History Cardiovascular: Coronary artery disease, Atrial fibrillation, Valve disorder Respiratory: None Neuro: Dementia, CVA Endocrine/Autoimmune: Type 2 diabetes GI: None : Incontinence, Frequency HEENT: None Psych: None Musculoskeletal: Osteoarthritis, Chronic back pain, Other Derm: None - Past Surgical History Past Surgical History: Yes General: Colonoscopy Ortho: Other Cardiovascular: CABG, Valve replacement, Other - Present Medications Home Medications: Ambulatory Orders Medication Instructions Recorded Confirmed Lisinopril/Hydrochlorothiazide 1 mg PO DAILY 07/14/18 03/06/22 [Lisinopril-Hctz 20-25 mg Tab] Rosuvastatin Calcium 10 mg PO HS 07/14/18 03/06/22 carvediloL [Coreg] 3.125 mg PO BID 11/22/21 03/06/22 Clotrimazole/Betamethasone Crm 1 applic TOP BID 6 Days #30 ml 03/06/22 [Lotrisone Cream] Docusate Sodium 100Mg Capsule 100 mg PO DAILY #20 cap 03/06/22 [Colace 100Mg Capsule] Doxycycline Hyclate 100 mg PO BID 03/06/22 03/06/22 Tamsulosin [Flomax] 0.4 mg PO DAILY 03/06/22 03/06/22 Valacyclovir HCl [Valtrex] 1,000 mg PO TID 03/06/22 03/06/22 Lidocaine Viscous 2% [Xylocaine 5 ml UR Q4H #100 ml 03/15/22 Viscous 2%] - Allergies Allergies/Adverse Reactions: Allergies Allergy/AdvReac Type Severity Reaction Status Date / Time clindamycin Allergy Unknown Verified 10/30/22 15:22 amoxicillin AdvReac Hives Verified 10/30/22 15:22 niacin AdvReac Hives Verified 10/30/22 15:22 - Social History Does the pt smoke?: No Smoking Status: Never smoker Does the pt drink ETOH?: No Does the pt have substance abuse?: No - Immunizations Immunizations are current?: Yes - POLST Patient has POLST: No PD ED PE NORMAL - Vitals Vital signs reviewed: Yes - General General: Other (He is alert but a poor historian, no distress. Cooperative.) - Abdomen Abdomen: Normal bowel sounds, Soft, Non tender - Rectal Rectal: Other (Large fecal impaction) Results - Vitals Vitals: Vital Signs - 24 hr 10/30/22 15:19 Temperature 37 C Heart Rate 91 Respiratory 16 Rate Blood Pressure 184/83 H O2 Saturation 99 Oxygen O2 Source Room air PD Medical Decision Making - ED course ED course: 82-year-old gentleman presents with his for treatment of a fecal impaction. He had minimal output with a first fleets enema, and this was followed by a soapsuds enema with a large bowel movement and relief of his symptoms. Departure - Departure Disposition: 01 Home, Self Care Clinical Impression: Fecal impaction Condition: Good Record reviewed to determine appropriate education?: Yes Instructions: ED Impaction Fecal Treated Comments: Call your doctor to arrange a follow-up appointment, make the next available appointment. In the interim, return anytime if worse or if new symptoms develop. Your blood pressure was elevated today on check into the emergency department. This does not mean that you have hypertension, it is a common phenomenon to come to the emergency department and have elevated blood pressure. I recommend that you see your primary care physician within the week to have it rechecked when you are feeling better.
== END 2022-10-30 16:36 | disposition home or self-care (01) ==
LOC: ED 15:10
DX: K56.49 Other impaction of intestine (principal); F03.90 Unspecified dementia, unspecified severity, without behavioral disturbance, psychotic disturbance, mood disturbance, and anxiety; I48.91 Unspecified atrial fibrillation; E11.9 Type 2 diabetes mellitus without complications; I25.810 Atherosclerosis of coronary artery bypass graft(s) without angina pectoris; Z86.73 Personal history of transient ischemic attack (TIA), and cerebral infarction without residual deficits; Z95.1 Presence of aortocoronary bypass graft; Z79.899 Other long term (current) drug therapy
CPT/HCPCS: 99281; 99283

== ENCOUNTER 2023-02-19 12:53 | Emergency (ER) | payer MEDICARE ==
--- OUTSIDE RECORDS SUMMARY | 2023-02-19 14:03 | EXTERNAL MEDICAL SUMMARY RPT | Continuity of Care Document ---
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 Name Role Phone Unavailable Unavailable Unavailable Jack [facility] Pa-C Unavailable Unavailable Medications date description facility 2023-02-02 00:00 [facility]asteride [facility] 2023-02-03 00:00 finasteride [facility] 2023-02-02 00:00 lisinopril-hydrochlorothiazide [facility] 2023-02-03 00:00 lisinopril-hydrochlorothiazide [facility] 2023-02-02 00:00 doxycycline monohydrate [facility] 2023-02-02 00:00 nitroglycerin [facility] 2023-02-03 00:00 nitroglycerin [facility] 2023-02-02 00:00 doxycycline monohydrate [facility] 2023-02-02 00:00 lisinopril-hydrochlorothiazide [facility] 2023-02-03 00:00 lisinopril-hydrochlorothiazide [facility] 2023-02-02 00:00 nitroglycerin [facility] 2023-02-03 00:00 nitroglycerin [facility] 2023-02-02 00:00 amlodipine [facility] 2023-02-03 00:00 amlodipine [facility] 2023-02-02 00:00 doxycycline monohydrate [facility] 2023-02-02 00:00 metformin [facility] 2023-02-03 00:00 metformin [facility] 2023-02-02 00:00 finasteride [facility] 2023-02-03 00:00 finasteride [facility] 2023-02-02 00:00 lisinopril-hydrochlorothiazide [facility] 2023-02-03 00:00 lisinopril-hydrochlorothiazide [facility] 2023-02-02 00:00 metformin [facility] 2023-02-03 00:00 metformin [facility] 2023-02-02 00:00 amlodipine [facility] 2023-02-03 00:00 amlodipine [facility] 2023-02-02 00:00 clopidogrel [facility] 2023-02-03 00:00 clopidogrel [facility] 2023-02-02 00:00 finasteride [facility] 2023-02-03 00:00 finasteride [facility] 2023-02-02 00:00 quetiapine [facility] 2023-02-03 00:00 quetiapine [facility] 2023-02-02 00:00 nitroglycerin [facility] 2023-02-03 00:00 nitroglycerin [facility] 2023-02-02 00:00 carvedilol [facility] 2023-02-03 00:00 carvedilol [facility] 2023-02-02 00:00 amlodipine [facility] 2023-02-03 00:00 amlodipine [facility] 2023-02-02 00:00 lisinopril-hydrochlorothiazide [facility] 2023-02-03 00:00 lisinopril-hydrochlorothiazide [facility] 2023-02-02 00:00 rosuvastatin [facility] 2023-02-03 00:00 rosuvastatin [facility] 2023-02-02 00:00 carvedilol [facility] 2023-02-03 00:00 carvedilol [facility] 2023-02-02 00:00 doxycycline monohydrate [facility] 2023-02-02 00:00 quetiapine [facility] 2023-02-03 00:00 quetiapine [facility] 2023-02-02 00:00 clopidogrel [facility] 2023-02-03 00:00 clopidogrel [facility] 2023-02-02 00:00 finasteride [facility] 2023-02-03 00:00 finasteride [facility] 2023-02-02 00:00 metformin [facility] 2023-02-03 00:00 metformin [facility] 2023-02-02 00:00 quetiapine [facility] 2023-02-03 00:00 quetiapine [facility] 2023-02-02 00:00 amlodipine [facility] 2023-02-03 00:00 amlodipine [facility] 2023-02-02 00:00 nitroglycerin [facility] 2023-02-03 00:00 nitroglycerin [facility] 2023-02-02 00:00 clopidogrel [facility] 2023-02-03 00:00 clopidogrel [facility] 2023-02-02 00:00 quetiapine [facility] 2023-02-03 00:00 quetiapine [facility] 2023-02-02 00:00 carvedilol [facility] 2023-02-03 00:00 carvedilol [facility] 2023-02-02 00:00 rosuvastatin [facility] 2023-02-03 00:00 rosuvastatin [facility] 2023-02-02 00:00 carvedilol [facility] 2023-02-03 00:00 carvedilol [facility] 2023-02-02 00:00 rosuvastatin [facility] 2023-02-03 00:00 rosuvastatin [facility] 2023-02-02 00:00 clopidogrel [facility] 2023-02-03 00:00 clopidogrel [facility] 2023-02-02 00:00 rosuvastatin [facility] 2023-02-03 00:00 rosuvastatin [facility] 2023-02-02 00:00 metformin [facility] 2023-02-03 00:00 metformin [facility] Problems date description facility 2023-02-02 00:00 Paronychia of toe [facility] 2023-02-02 00:00 Onychia and paronychia of toe [facility] 2023-02-02 00:00 Cellulitis of unspecified toe [facility] Procedures date description facility 2023-02-02 00:00 Visit Code Hold [facility] Social History date description facility 2023-02-02 00:00 Never smoker [facility] Vital Signs date measurement value units 2023-02-02 00:00 BMI 19.87 kg/m2 2023-02-02 00:00 BP_diastolic 96 mmHg 2023-02-02 00:00 BP_systolic 161 mmHg 2023-02-02 00:00 heart_rate 73 /min 2023-02-02 00:00 height_metric 177.8 cm 2023-02-02 00:00 height_standard 70 in 2023-02-02 00:00 respiration_rate 16 /min 2023-02-02 00:00 temperature_metric 36.94 C 2023-02-02 00:00 temperature_standard 98.5 F 2023-02-02 00:00 weight_metric 62.6 kg 2023-02-02 00:00 weight_standard 138 lb
--- NOTE | 2023-02-19 14:59 | ED Physician Documentation ---
PD HPI SKIN - Stated complaint Stated Complaint: LT TOE PX,SWELLING - Chief complaint Chief Complaint: Ext Problem - History obtained from History obtained from: Patient - History of Present Illness Timing - onset: How many weeks ago Timing - duration: Weeks (initially with right toe redness and swelling, pain. This drainad some purulence. Now with left toe nailbed redness and pain.) Timing - details: Gradual onset, Still present (location of redness/warmth is more c/w cellulitic process from paronychia and not in obvoious gout location. No history of gout. Had had some purulent drainage from right great toe corner.) Location: Other (both great toe nailbeds and proximal to that.) Quality / character: Painful, Discolored (red). No: Vesicular Review of Systems Constitutional: denies: Fever, Chills Nose: denies: Rhinorrhea / runny nose, Congestion Throat: denies: Sore throat Cardiac: denies: Chest pain / pressure Respiratory: denies: Cough GI: reports: Abdominal Pain, Nausea. denies: Vomiting, Bloody / black stool PD PAST MEDICAL HISTORY - Past Medical History Cardiovascular: Coronary artery disease, Atrial fibrillation, Valve disorder Respiratory: None Neuro: Dementia, CVA Endocrine/Autoimmune: Type 2 diabetes GI: None : Incontinence, Frequency HEENT: None Psych: None Musculoskeletal: Osteoarthritis, Chronic back pain, Other Derm: None - Past Surgical History Past Surgical History: Yes General: Colonoscopy Ortho: Other Cardiovascular: CABG, Valve replacement, Other - Present Medications Home Medications: Ambulatory Orders Medication Instructions Recorded Confirmed Lisinopril/Hydrochlorothiazide 1 mg PO DAILY 07/14/18 03/06/22 [Lisinopril-Hctz 20-25 mg Tab] Rosuvastatin Calcium 10 mg PO HS 07/14/18 03/06/22 carvediloL [Coreg] 3.125 mg PO BID 11/22/21 03/06/22 Clotrimazole/Betamethasone Crm 1 applic TOP BID 6 Days #30 ml 03/06/22 [Lotrisone Cream] Docusate Sodium 100Mg Capsule 100 mg PO DAILY #20 cap 03/06/22 [Colace 100Mg Capsule] Doxycycline Hyclate 100 mg PO BID 03/06/22 03/06/22 Tamsulosin [Flomax] 0.4 mg PO DAILY 03/06/22 03/06/22 Valacyclovir HCl [Valtrex] 1,000 mg PO TID 03/06/22 03/06/22 Lidocaine Viscous 2% [Xylocaine 5 ml UR Q4H #100 ml 03/15/22 Viscous 2%] Mupirocin 2% Oint [Bactroban 2% 1 applic TOP TID #15 gm 02/19/23 Oint] - Allergies Allergies/Adverse Reactions: Allergies Allergy/AdvReac Type Severity Reaction Status Date / Time clindamycin Allergy Unknown Verified 02/19/23 13:12 amoxicillin AdvReac Hives Verified 02/19/23 13:12 niacin AdvReac Hives Verified 02/19/23 13:12 - Social History Does the pt smoke?: No Smoking Status: Never smoker Does the pt drink ETOH?: No Does the pt have substance abuse?: No - Immunizations Immunizations are current?: Yes - POLST Patient has POLST: No PD ED PE NORMAL - Vitals Vital signs reviewed: Yes - General General: No acute distress, Well developed/nourished - Derm Derm: Normal color, Warm and dry - Extremities Extremities: Other (left great toe nailbed and proximal to that showing redness/warmth tenderness. No fluctuance. Not tender at MTP area. Nails are notingrown, but does hav chronic fungal infection appearance. ) Results - Vitals Vitals: Vital Signs - 24 hr 02/19/23 02/19/23 13:12 15:50 Temperature 37 C Heart Rate 92 87 Respiratory 18 18 Rate Blood Pressure 162/115 H 158/106 H O2 Saturation 97 98 Oxygen O2 Source Room air PD Medical Decision Making - ED course Complexity details: considered differential (had had infection around right nailbed toe. This cleared with drainage and time. With left great to nailbed and proximal with redness/warmth/swelling. No fluctuance. ), d/w patient, d/w family Departure - Departure Disposition: 01 Home, Self Care Clinical Impression: Paronychia Cellulitis, toe Qualifiers: Laterality: left Qualified Code(s): L03.032 - Cellulitis of left toe Condition: Stable Record reviewed to determine appropriate education?: Yes Instructions: ED Infec Skin Cellulitis Prescriptions: Mupirocin 2% Oint [Bactroban 2% Oint] 1 applic TOP TID #15 gm Comments: I would continue with the doxycycline that you started yesterday. This looks to be an infection around the nail and of the soft tissue of the toe. You can also soak the toe periodically to 3 times daily to improve blood flow and moisten up some of the dry tissue. Apply mupirocin antibiotic ointment to the area lightly after that. Tylenol as needed for pains. Recheck if not improving well over the next few days and resolved by 3 to 5 days. [facility] [place]. It is okay if you pick it up tomorrow. You were given some ointment tonight. Forms: PCP List Discharge Date/Time: 02/19/23 15:50
[2023-02-19] MEDS ORDERED: ACETAMINOPHEN 325 MG TABLET PO STA (15:31)
[2023-02-19] MEDS ORDERED: MUPIROCIN 2% OINT 1 GM TOP STA (15:31)
[2023-02-19 15:54] VITALS: BP 158/106; O2SAT 98
== END 2023-02-19 15:50 | disposition home or self-care (01) ==
LOC: ED 12:53
DX: L03.032 Cellulitis of left toe (principal); I48.91 Unspecified atrial fibrillation; I25.810 Atherosclerosis of coronary artery bypass graft(s) without angina pectoris; E11.9 Type 2 diabetes mellitus without complications; Z95.1 Presence of aortocoronary bypass graft; Z79.899 Other long term (current) drug therapy
CPT/HCPCS: 99282; 99283; A9270

== ENCOUNTER 2023-07-16 12:17 | Emergency (ER) | payer MEDICARE ==
--- NOTE | 2023-07-16 13:08 | ED Physician Documentation ---
History of Present Illness - Stated complaint Stated Complaint: GLF/DIZZY - Chief complaint Chief Complaint: Trauma Ext - History obtained from History obtained from: Family - Additonal information Additional information: 82-year-old gentleman presents with . He has a history of diabetes, A-fib with watchman, TAVR, and bypass. Over the last week he has had some dizzy spells. Almost all of the history is from the because of his dementia, but he has episodes where he cries out with potentially a headache and then has near syncope. Today he had an unwitnessed fall in the bedroom and he has a scrape on his head and his nose. He is mostly complaining of left-sided pain kind of diffusely in the arm and scapula. PD PAST MEDICAL HISTORY - Past Medical History Past Medical History: Yes Cardiovascular: Coronary artery disease, Atrial fibrillation, Valve disorder Respiratory: None Neuro: Dementia, CVA Endocrine/Autoimmune: Type 2 diabetes GI: None : Incontinence, Frequency HEENT: None Psych: None Musculoskeletal: Osteoarthritis, Chronic back pain, Other Derm: None - Past Surgical History Past Surgical History: Yes General: Colonoscopy Ortho: Other Cardiovascular: CABG, Valve replacement, Other - Present Medications Home Medications: Ambulatory Orders Medication Instructions Recorded Confirmed Lisinopril/Hydrochlorothiazide 1 mg PO DAILY 07/14/18 03/06/22 [Lisinopril-Hctz 20-25 mg Tab] Rosuvastatin Calcium 10 mg PO HS 07/14/18 03/06/22 carvediloL [Coreg] 3.125 mg PO BID 11/22/21 03/06/22 Clotrimazole/Betamethasone Crm 1 applic TOP BID 6 Days #30 ml 03/06/22 [Lotrisone Cream] Docusate Sodium 100Mg Capsule 100 mg PO DAILY #20 cap 03/06/22 [Colace 100Mg Capsule] Doxycycline Hyclate 100 mg PO BID 03/06/22 03/06/22 Tamsulosin [Flomax] 0.4 mg PO DAILY 03/06/22 03/06/22 Valacyclovir HCl [Valtrex] 1,000 mg PO TID 03/06/22 03/06/22 Lidocaine Viscous 2% [Xylocaine 5 ml UR Q4H #100 ml 03/15/22 Viscous 2%] Mupirocin 2% Oint [Bactroban 2% 1 applic TOP TID #15 gm 02/19/23 Oint] - Allergies Allergies/Adverse Reactions: Allergies Allergy/AdvReac Type Severity Reaction Status Date / Time clindamycin Allergy Unknown Verified 07/16/23 12:54 amoxicillin AdvReac Hives Verified 07/16/23 12:54 niacin AdvReac Hives Verified 07/16/23 12:54 - Social History Does the pt smoke?: No Smoking Status: Never smoker Does the pt drink ETOH?: No Does the pt have substance abuse?: No - Immunizations Immunizations are current?: Yes - POLST Patient has POLST: No PD ED PE NORMAL - Vitals Vital signs reviewed: Yes - General General: No acute distress, Other (Fairly demented and as such all of the history is from the . He is cooperative and jovial though.) - HEENT HEENT: Other (Shallow scrape on the forehead and abrasion on the bridge of the nose without facial bony tenderness.) - Neck Neck: Supple, no meningeal sign, No bony TTP - Cardiac Cardiac: RRR, No murmur - Respiratory Respiratory: No respiratory distress, Clear bilaterally - Abdomen Abdomen: Non tender - Derm Derm: No rash - Neuro Neuro: stem frazer 2-12 intact Eye Opening: Spontaneous Motor: Obeys Commands Verbal: Confused GCS Score: 14 Results - Vitals Vitals: Vital Signs - 24 hr 07/16/23 07/16/23 07/16/23 12:45 14:02 15:50 Temperature 36.6 C Heart Rate 77 55 L 77 Respiratory 15 15 13 Rate Blood Pressure 153/76 H 158/69 H 181/82 H O2 Saturation 99 99 96 Oxygen O2 Source Room air - EKG (time done) 1327 EKG releavant findings:: EKG personally interpreted by author of this note. Relevant findings are: Rate: Rate (enter#) (61) Rhythm: NSR [place]: Normal Intervals: Prolonged NC, RBBB QRS: Normal Ischemia: Q waves (inferior). No: ST elevation c/w ischemia, ST depression Compare to prior EKG: Old EKG unavailable Computer interpretation: Agree with computer - Labs Labs: Laboratory Tests 07/16/23 07/16/23 13:14 13:14 WBC 7.7 RBC 4.58 L Hgb 14.4 Hct 44.5 MCV 97.2 H MCH 31.4 H MCHC 32.4 RDW 13.1 Plt Count 148 MPV 10.1 Neut # (Auto) 5.6 Lymph # (Auto) 1.0 L Cannon # (Auto) 0.7 Eos # (Auto) 0.3 Baso # (Auto) 0.1 Absolute Nucleated RBC 0.00 Nucleated RBC % 0.0 Sodium 138 Potassium 4.1 Chloride 101 Carbon Dioxide 31 Anion Gap 6.0 BUN 26 H Creatinine 0.9 Estimated GFR (MDRD) 80 L Glucose 159 H Calcium 9.7 Total Bilirubin 1.0 AST 24 ALT 23 Alkaline Phosphatase 66 Total Protein 6.9 Albumin 4.3 Globulin 2.6 Albumin/Globulin Ratio 1.7 - Rads (name of study) X-rays of left shoulder, wrist, elbow are negative except for arthritic changes. Relevant Findings:: Final report received, EMP independent interpretation of test PD Medical Decision Making - ED course ED course: 82-year-old gentleman with extensive cardiac history presents with near syncopal episodes and today had a fall, unclear if that was related to his near syncopal episode. does not think he syncopized though. He is got left-sided arm injuries and a scrape on his forehead. I do not see any abnormalities on his imaging and he was discharged with formal reads pending as the radiologist is running behind at this time. He appears well though. On the monitor in the department though he had some bradycardic episodes down into the mid 30s. He is on carvedilol and was advised to stop this pending cardiology follow-up. Presume they will want to do more prolonged monitoring for consideration for pacemaker. Departure - Departure Disposition: 01 Home, Self Care Clinical Impression: Near syncope, Bradycardia Head injury Qualifiers: Encounter type: initial encounter Qualified Code(s): S09.90XA - Unspecified injury of head, initial encounter Left upper arm injury Qualifiers: Encounter type: initial encounter Qualified Code(s): S49.92XA - Unspecified injury of left shoulder and upper arm, initial encounter Injury of wrist Qualifiers: Encounter type: initial encounter Laterality: left Qualified Code(s): S69.92XA - Unspecified injury of left wrist, hand and finger(s), initial encounter Condition: Good Record reviewed to determine appropriate education?: Yes Instructions: ED Head Injury Closed, ED Sprain Wrist Comments: Ismael was seen today for some near syncopal episodes and now a fall. Does not seem like there is any serious injuries from the fall, but we did notice at times that his heart rate dropped into the mid 30s here which may be causing his dizzy spells. His labs were unremarkable. Recommend you call [facility] tomorrow, suspect they will want to set you up with a mobile pvc monitor. In the meantime it is reasonable to stop his carvedilol which does lower heart rate. Tylenol as needed for pain per package instructions. Return for new or worsening symptoms. Forms: PCP List Discharge Date/Time: 07/16/23 15:50
[2023-07-16] MEDS ORDERED: TETANUS/DIPHTHERIA/PERTUSSIS 0.5 ML SYRINGE IM ONE (13:09)
[2023-07-16 13:20] LABS: BASOPHILS # (AUTO) 0.1 10^3/uL (0.0-0.1); BASOPHILS % (AUTO) 1.3 %; EOSINOPHILS # (AUTO) 0.3 10^3/uL (0.0-0.7); EOSINOPHILS % (AUTO) 3.9 %; HCT - HEMATOCRIT 44.5 % (42.0-52.0); HGB - HEMOGLOBIN 14.4 g/dL (14.0-18.0); LYMPHOCYTES % (AUTO) 13.3 %; MEAN CORPUSCULAR HEMOGLOBIN 31.4 pg (27.0-31.0); MEAN CORPUSCULAR HGB CONC 32.4 g/dL (32.0-36.0); MEAN CORPUSCULAR VOLUME 97.2 fL (80.0-94.0); MEAN PLATELET VOLUME 10.1 fL (7.4-11.4); MONOCYTES # (AUTO) 0.7 10^3/uL (0.0-1.0); MONOCYTES % (AUTO) 9.1 %; NEUTROPHILS # (AUTO) 5.6 10^3/uL (1.5-6.6); NEUTROPHILS % (AUTO) 72.1 %; PLT - PLATELET COUNT 148 10^3/uL (130-450); RED BLOOD COUNT 4.58 10^6/uL (4.70-6.10); RED CELL DISTRIBUTION WIDTH 13.1 % (12.0-15.0); WHITE BLOOD COUNT 7.7 x10^3/uL (4.8-10.8)
[2023-07-16 13:38] LABS: ALBUMIN 4.3 g/dL (3.2-5.5); ALBUMIN/GLOBULIN RATIO 1.7 (1.0-2.2); CALCIUM 9.7 mg/dL (8.5-10.3); CREATININE 0.9 mg/dL (0.6-1.3); POTASSIUM 4.1 mmol/L (3.5-4.5); TOTAL PROTEIN 6.9 g/dL (6.4-8.9)
--- NOTE | 2023-07-16 15:18 | CT Report ---
PROCEDURE: CT brain without contrast INDICATIONS: head inj TECHNIQUE: Helical axial CT of the brain was obtained without contrast and reformatted in multiple p lanes. Radiation dose reduction was achieved using automated exposure control or adjustment of mA and /or kV according to patient size. COMPARISON: None FINDINGS: CSF spaces: Ventricles are appropriate in size and position. No hydrocephalus. Basal cisterns unre markable. Brain: No midline shift. No intracranial masses or hemorrhage. Casas-white matter interface is norm al. Skull and face: Calvarium and skull base are unremarkable without suspicious lesion. Sinuses: Visualized sinuses and mastoids are clear. IMPRESSION: Atrophy and mild chronic ischemic change without intracranial hemorrhage or mass effect Reviewed by: Jose Roberto Arthur MD on 07/16/2023 2:16 PM AKST Approved by: Jose Roberto Arthur MD on 07/16/2023 2:16 PM AKST Station ID: [id number]
--- NOTE | 2023-07-16 15:42 | XRAY Report ---
PROCEDURE: Elbow 3+V LT INDICATIONS: arm inj TECHNIQUE: 3 views of the elbow were acquired. COMPARISON: None FINDINGS: Bones: No fractures or dislocations. No suspicious bony lesions. Soft tissues: No elbow joint effusion. No suspicious soft tissue calcifications. IMPRESSION: Unremarkable elbow radiographs Reviewed by: Jose Roberto Arthur MD on 07/16/2023 2:40 PM AKST Approved by: Jose Roberto Arthur MD on 07/16/2023 2:40 PM AKST Station ID: [id number]
--- NOTE | 2023-07-16 15:43 | XRAY Report ---
PROCEDURE: Shoulder 2+V LT INDICATIONS: arm inj TECHNIQUE: 2 views of the shoulder were acquired. COMPARISON: None FINDINGS: Bones: No fractures or dislocations. No suspicious bony lesions. Visualized ribs appear intact. H ypertrophic AC joint Soft tissues: No suspicious soft tissue calcifications. IMPRESSION: No fracture or dislocation. AC osteoarthritis Reviewed by: Jose Roberto Arthur MD on 07/16/2023 2:41 PM AK Approved by: Jose Roberto Arthur MD on 07/16/2023 2:41 PM AKST Station ID: [id number]
--- NOTE | 2023-07-16 15:43 | XRAY Report ---
PROCEDURE: Wrist 3+V LT INDICATIONS: arm inj TECHNIQUE: 3 views of the wrist were acquired. COMPARISON: None FINDINGS: Bones: No fractures or dislocations. No suspicious bony lesions. Joint space narrowing and marginal osteophyte noted involving the first carpometacarpal joint Soft tissues: No suspicious soft tissue calcifications or masses. Atherosclerotic vascular calcifica tion IMPRESSION: First CMC osteoarthritis. No fracture Reviewed by: Jose Roberto Arthur MD on 07/16/2023 2:42 PM AKST Approved by: Jose Roberto Arthur MD on 07/16/2023 2:42 PM AKST Station ID: [id number]
[2023-07-16 15:53] VITALS: BP 181/82; O2SAT 96
--- NOTE | 2023-07-16 16:34 | CT Report ---
PROCEDURE: CT cervical spine without contrast INDICATIONS: head inj TECHNIQUE: Helical axial CT of the cervical spine was obtained without contrast and reformatted in m ultiple planes. Radiation dose reduction was achieved utilizing automated exposure control or adjus tment of mA and/or kV according to patient size. COMPARISON: None. FINDINGS: Bones: No fractures or dislocations. Visualized superior ribs are intact. 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 No paravertebral hematomas. No ap ical pneumothoraces. IMPRESSION: No evidence of fracture or traumatic malalignment Reviewed by: Jose Roberto Arthur MD on 07/16/2023 3:33 PM AKST Approved by: Jose Roberto Arthur MD on 07/16/2023 3:33 PM AKST Station ID: [id number]
== END 2023-07-16 15:50 | disposition home or self-care (01) ==
LOC: ED 12:17
DX: S09.90XA Unspecified injury of head, initial encounter (principal); S49.92XA Unspecified injury of left shoulder and upper arm, initial encounter; S69.92XA Unspecified injury of left wrist, hand and finger(s), initial encounter; W19.XXXA Unspecified fall, initial encounter; Y92.003 Bedroom of unspecified non-institutional (private) residence as the place of occurrence of the external cause; R55 Syncope and collapse; R00.1 Bradycardia, unspecified; F03.90 Unspecified dementia, unspecified severity, without behavioral disturbance, psychotic disturbance, mood disturbance, and anxiety; E11.9 Type 2 diabetes mellitus without complications; I48.91 Unspecified atrial fibrillation; I25.810 Atherosclerosis of coronary artery bypass graft(s) without angina pectoris; Z95.1 Presence of aortocoronary bypass graft; Z86.73 Personal history of transient ischemic attack (TIA), and cerebral infarction without residual deficits; Z79.899 Other long term (current) drug therapy; Z23 Encounter for immunization
CPT/HCPCS: 36415; 80053; 85025; 90471; 93005; 99283; 99284

== ENCOUNTER 2023-12-22 10:29 | Outpatient (CLI) | payer MEDICARE ==
[2023-12-22 11:03] LABS: CHOL/HDL RATIO 2.4 (<5.0); CHOLESTEROL 124 mg/dL; HDL CHOLESTEROL 51 mg/dL; LDL CHOLESTEROL,CALCULATED 50 mg/dL; TRIGLYCERIDES 114 mg/dL (48-352); VLDL CHOLESTEROL 23 mg/dL
== END 2023-12-22 10:30 | disposition home or self-care (01) ==
LOC: LAB 10:29
PROVIDERS: ATTEND Internal Medicine Interventional Cardiology
DX: E78.5 Hyperlipidemia, unspecified (principal)
CPT/HCPCS: 36415; 80061; 83721